=== PATIENT | female | born 1995 | race Caucasian/White ===

== ENCOUNTER 2019-05-02 17:34 | Emergency (ER) | payer OTHER ==
[2019-05-02 17:50] VITALS: BP 123/70
[2019-05-02] MEDS ORDERED: ACETAMINOPHEN 325 MG TABLET PO ONE (17:59)
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
[2019-05-02 18:55] LABS: APPEARANCE,URINE CLOUDY; BILIRUBIN,URINE NEGATIVE (NEGATIVE); COLOR,URINE YELLOW; GLUCOSE, URINE NEGATIVE (NEGATIVE); KETONES,URINE NEGATIVE (NEGATIVE); PROTEIN,URINE NEGATIVE (NEGATIVE); URINE SPECIFIC GRAVITY 1.019; UROBILINOGEN,URINE NEGATIVE mg/dL (<2.0)
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
[2019-05-02] MEDS ORDERED: HYDROCODONE/ACETAMINOPHEN 5-325 MG (6 TAB/ER DISP) PO PRN (21:16)
[2019-05-02] MEDS ORDERED: METHOCARBAMOL 500 MG TABLET PO ONE (21:16)
[2019-05-02] MEDS ORDERED: DIPH/PERTUSS(ACELL)/TETANUS VAC/PF 0.5 ML SYR (>=10YO) IM ONE (21:18)
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
== END 2019-05-02 22:12 | disposition home or self-care (01) ==
LOC: ER 17:34
DX: S16.1XXA Strain of muscle, fascia and tendon at neck level, initial encounter (principal); S83.92XA Sprain of unspecified site of left knee, initial encounter; S53.402A Unspecified sprain of left elbow, initial encounter; S90.812A Abrasion, left foot, initial encounter; S20.311A Abrasion of right front wall of thorax, initial encounter; M54.2 Cervicalgia; M25.522 Pain in left elbow; M25.562 Pain in left knee; R07.89 Other chest pain; M79.10 Myalgia, unspecified site; R10.819 Abdominal tenderness, unspecified site; M54.9 Dorsalgia, unspecified; V49.40XA Driver injured in collision with unspecified motor vehicles in traffic accident, initial encounter; Y92.410 Unspecified street and highway as the place of occurrence of the external cause
CPT/HCPCS: 70450; 71260; 72125; 74177; 81001; 81025; 87086; 87088; 87186; 90471; 90715; 99284

== ENCOUNTER 2019-07-08 05:44 | Emergency (ER) | payer SELFPAY ==
[2019-07-08 06:13] VITALS: BP 107/65
[2019-07-08 07:19] LABS: APPEARANCE,URINE SLIGHTLY-CLOUDY; BILIRUBIN,URINE NEGATIVE (NEGATIVE); GLUCOSE, URINE NEGATIVE (NEGATIVE); KETONES,URINE 80 mg/dL (NEGATIVE); LEUKOCYTE ESTERASE,URINE NEGATIVE (NEGATIVE); NITRITE,URINE POSITIVE (NEGATIVE); PROTEIN,URINE 30 mg/dL (NEGATIVE); URINE SPECIFIC GRAVITY 1.027; UROBILINOGEN,URINE NEGATIVE mg/dL (<2.0)
[2019-07-08 07:20] LABS: COLOR,URINE DARK YELLOW
--- NOTE | 2019-07-08 07:41 | ER Document Report ---
Entered by CECILIA BOND SCRIBE 07/08/19 0644 Acting as scribe for:JOYCE AZAR MD ED General - General Chief Complaint: Arm Pain Stated Complaint: LEFT ARM PAIN Time Seen by Provider: 07/08/19 06:22 Primary Care Provider: PEDRO VIDAL MD [ACTIVE STAFF] - Follow up as needed Information source: Patient Notes: This 24-year-old female presents to the emergency department complaining of left arm pain that began a week ago. Patient explains that she has had her control in her arm for over three years and was suppose to have it taken out in February (5 months ago). Patient states that she does not have a OBGYN physician. Patient says that her upper arm where her control is hurts to touch and hurts to move her arm. Patient denies any recent injury and fever. TRAVEL OUTSIDE OF THE [place] IN LAST 30 DAYS: No - Related Data Allergies/Adverse Reactions: No Known Allergies Allergy (Unverified 07/08/19 06:05) Past Medical History - General Information source: Patient - Social History Smoking Status: Never Smoker Cigarette use (# per day): No Chew tobacco use (# tins/day): No Frequency of alcohol use: Social Drug Abuse: None Family History: Reviewed & Not Pertinent Patient has homicidal ideation: No - Medical History Medical History: Negative Surgical Hx: Negative Review of Systems - Review of Systems Constitutional: See HPI. denies: Fever EENT: No symptoms reported Cardiovascular: No symptoms reported Respiratory: No symptoms reported Gastrointestinal: No symptoms reported Genitourinary: No symptoms reported Female Genitourinary: No symptoms reported Musculoskeletal: See HPI, Other - Left arm pain Skin: No symptoms reported Hematologic/Lymphatic: No symptoms reported Neurological/Psychological: No symptoms reported -: Yes All other systems reviewed and negative Physical Exam - Vital signs Vitals: Temp Pulse Resp BP Pulse Ox 98.3 F 89 18 107/65 97 07/08/19 06:07 07/08/19 06:07 07/08/19 06:07 07/08/19 06:07 07/08/19 06:07 - Notes Notes: Physical Exam: General: Alert, appears well. HEENT: Normocephalic. Atraumatic. PERRL. Extraocular movements intact. Oropharynx clear. Neck: Supple. Non-tender. Respiratory: No respiratory distress. Clear and equal breath sounds bilaterally. Cardiovascular: Regular rate and rhythm. Abdominal: Normal Inspection. Non-tender. No distension. Normal Bowel Sounds. Back: No gross abnormalities. Extremities: Moves all four extremities. Upper extremities: Left upper arm where implant is placed has no swelling, redness and tenderness to the touch. Implant is palpable. Normal ROM. Lower extremities: Normal inspection. No edema. Normal ROM. Neurological: Normal cognition. AAOx4. Normal speech. Psychological: Normal affect. Normal Mood. Skin: Warm. Dry. Normal color. Course - Re-evaluation Re-evalutation: 07/08/19 07:31 Patient resting comfortably pending results of urinalysis as well as urine test. - Vital Signs Vital signs: Temp Pulse Resp BP Pulse Ox 98.3 F 89 18 107/65 97 07/08/19 06:07 07/08/19 06:07 07/08/19 06:07 07/08/19 06:07 07/08/19 06:07 07/08/19 07:31 Vital signs stable - Laboratory Laboratory results interpreted by me: 07/08/19 06:59 Urine Protein 30 H Urine Ketones 80 H Urine Nitrite POSITIVE H Urine Ascorbic Acid 40 H Laboratory results shows urinalysis that is nitrite positive only 1+ bacteria leukocyte Estrace negative. Urine negative. Patient reports no symptoms of urinary tract infection including no frequency burning discomfort fever chills or nausea. Denies any back pain. Discharge - Discharge Clinical Impression: Left upper arm pain, Uses contraceptive implant for control Condition: Stable Disposition: HOME, SELF-CARE Additional Instructions: Your complaint today is about an contraceptive implant you have implant left upper arm, and per your history this implant is now greater than 5months over its duration. You also discussed that the implant is causing you pain in this area. Our exam today does not disclose any redness swelling or concern as to an emergency at this time. We are referring you to an OB placing judge Dr. Daniel Vidal see discharge papers. I recommend you consider taking Tylenol or Advil if needed for pain and left arm. Also today's exam did not show any signs of with a negative urinalysis screen. Also there is 1+ bacteria noted in urine however you report no symptoms of urinary tract infection therefore no antibiotic treatment is prescribed at this time. Referrals: PEDRO VIDAL MD [ACTIVE STAFF] - Follow up as needed I personally performed the services described in the documentation, reviewed and edited the documentation which was dictated to the scribe in my presence, and it accurately records my words and actions.
== END 2019-07-08 07:53 | disposition home or self-care (01) ==
LOC: ER 05:44
DX: M79.602 Pain in left arm (principal); Z30.46 Encounter for surveillance of implantable subdermal contraceptive
CPT/HCPCS: 81001; 81025; 87086; 87088; 87186; 99283

== ENCOUNTER 2019-10-04 00:05 | Emergency (ER) | payer MEDICAID ==
[2019-10-04 00:33] VITALS: BP 105/66
[2019-10-04 02:21] LABS: ABSOLUTE EOSINOPHILS # (AUTO) 0.1 10^3/uL (0.0-0.6); ABSOLUTE MONOCYTES (AUTO) 0.6 10^3/uL (0.1-1.4); ABSOLUTE NEUT (AUTO) 5.1 10^3/uL (1.7-8.2); BASOPHILS % (AUTO) 0.2 % (0-2); EOSINOPHILS % (AUTO) 0.7 % (0-6); HEMATOCRIT 40.1 % (36.0-47.0); HEMOGLOBIN 13.9 g/dL (12.0-15.5); LYMPHOCYTES % (AUTO) 26.1 % (13-45); MEAN CORPUSCULAR HEMOGLOBIN 29.5 pg (27.0-33.4); MEAN CORPUSCULAR HGB CONC 34.6 g/dL (32.0-36.0); MEAN CORPUSCULAR VOLUME 85 fl (80-97); MONOCYTES % (AUTO) 7.4 % (3-13); PLATELET COUNT 262 10^3/uL (150-450); RED CELL DISTRIBUTION WIDTH 13.3 % (11.5-14.0); SEGMENTED NEUTROPHILS % (AUTO) 65.6 % (42-78); TOTAL CELLS COUNTED % (AUTO) 100 %; WHITE BLOOD COUNT 7.7 10^3/uL (4.0-10.5)
[2019-10-04 02:35] LABS: ALBUMIN 4.1 g/dL (3.5-5.0); ALKALINE PHOSPHATASE 44 U/L (38-126); ANION GAP 8 (5-19); ASPARTATE AMINO TRANSFERASE 20 U/L (14-36); BILIRUBIN,TOTAL 0.4 mg/dL (0.2-1.3); BLOOD UREA NITROGEN 6 mg/dL (7-20); CALCIUM 9.5 mg/dL (8.4-10.2); CARBON DIOXIDE 23 mmol/L (22-30); CHLORIDE 104 mmol/L (98-107); GLUCOSE 94 mg/dL (75-110); POTASSIUM 3.8 mmol/L (3.6-5.0); TOTAL PROTEIN 7.5 g/dL (6.3-8.2)
[2019-10-04 02:48] LABS: APPEARANCE,URINE SLIGHTLY-CLOUDY; BILIRUBIN,URINE NEGATIVE (NEGATIVE); COLOR,URINE YELLOW; GLUCOSE, URINE NEGATIVE (NEGATIVE); KETONES,URINE NEGATIVE (NEGATIVE); LEUKOCYTE ESTERASE,URINE NEGATIVE (NEGATIVE); NITRITE,URINE NEGATIVE (NEGATIVE); PROTEIN,URINE NEGATIVE (NEGATIVE); URINE SPECIFIC GRAVITY 1.018; UROBILINOGEN,URINE NEGATIVE mg/dL (<2.0)
== END 2019-10-04 05:18 | disposition left against medical advice (07) ==
LOC: ER 00:05
DX: Z53.21 Procedure and treatment not carried out due to patient leaving prior to being seen by health care provider (principal)
CPT/HCPCS: 36415; 80053; 81001; 83690; 84702; 85025

== ENCOUNTER 2020-03-11 07:23 | Outpatient (CLI) | payer MEDICAID ==
--- NOTE | 2020-03-11 08:20 | Non Stress Test Report ---
Non Stress Test Datetime Report Generated by CPN: 03/11/2020 08:20 DEMOGRAPHIC Test Number: 1 EGA NST: 33.1 VITAL SIGNS Temperature - NST: 97.9 Pulse - NST: 73 RESP - NST: 16 NBPSYS NST: 105 NBPDIA NST: 67 MONITORING Monitor Explained: Monitor Explained; Test Explained; Patient Verbalized Understanding Time on Monitor: 03/11/2020 07:47 Time off Monitor: 03/11/2020 08:19 NST Duration: 32 NST INTERVENTIONS NST Interventions: PO Hydration; Reposition Patient Physician Notified NST: N Tuttle BABY A: [id number] BABY A Movement : Present; Decreased Contraction Frequency : occasional FHR Baseline : 135 Accelerations : 15X15 Decelerations : None Variability : Moderate 6-25bpm NST Review: Meets Criteria for Reactive NST NST Review and Verified By : HUMBLE Hernandez Results: Reactive NST Results: Reactive NST REPORT Report Trigger: Send Report
== END 2020-03-11 08:24 | disposition home or self-care (01) ==
LOC: LC 07:23
PROVIDERS: ATTEND Obstetrics & Gynecology
DX: O36.8130 Decreased fetal movements, third trimester, not applicable or unspecified (principal); Z3A.33 33 weeks gestation of pregnancy
CPT/HCPCS: 59025